=== PATIENT | female | born 1985 | race African-American/Black ===

== ENCOUNTER 2017-05-10 05:12 | Inpatient (IN) | payer OTHER ==
[2017-05-10] VITALS (25 sets, daily range): BP systolic 115–178; BP diastolic 65–100
[~2017-05-10] VITALS: Ht 175.3 cm; Wt 100.7 kg
[~2017-05-10 05:12] MED LIST: ALBUTEROL SULF8.5 GM INH
[2017-05-10] MEDS ORDERED: Thrombin 5000 units TOPIC ONE (06:35)
[2017-05-10] MEDS ORDERED: Surgicel 4in x 8in TOPIC ONE (06:35)
[2017-05-10] MEDS ORDERED: Lidocaine 1% Plain 30 ml INJ ONE ×2 (06:36→07:00)
[2017-05-10] MEDS ORDERED: Bacitracin 50000 Units Vial ONE (06:36)
[2017-05-10] MEDS ORDERED: Vancomycin 1gm inj IVPB ONE (06:36)
[2017-05-10] MEDS ORDERED: LR 1000ml 1,000 ML IVLG SCH (06:41)
--- NOTE | 2017-05-10 06:43 | Anethesia Preoperative Eval ---
Anesthesia Pre-op PMH/ROS General Date of Evaluation: May 10, 2017 Time of Evaluation: 07:11 Anesthesiologist: Dolly ASA Score: ASA 2 Mallampati Score Class I : Soft palate, uvula, fauces, pillars visible Class II: Soft palate, uvula, fauces visible Class III: Soft palate, base of uvula visible Class IV: Only hard plate visible Mallampati Classification: Class I Surgeon: Reilly Diagnosis: Neck Pain Surgical Procedure: C5-6 ADR Anesthesia History: none Family History: no anesthesia problems Allergies: Coded Allergies: SHELLFISH DERIVED (Verified Allergy, Severe, SWELLING, 05/09/17) Medications: see eMAR Past Medical History Pulmonary: Reports: asthma Other: obesity - BMI 35 PSxH Narrative: C/S Anesthesia Pre-op Phys. Exam Physician Exam Last Vital Signs Date Time Temp Pulse Resp B/P (MAP) Pulse Ox O2 Delivery O2 Flow Rate FiO2 05/10/17 05:55 97.8 74 20 131/90 98 Room Air Constitutional: NAD Neurologic: CN 2-12 intact Cardiovascular: RRR Respiratory: CTA Gastrointestinal: S/NT/ND Airway Exam Mallampati Score: Class II MO: full ROM: limited Teeth: intact Anesthesia Pre-op A/P Labs Urine Test Test 05/10/17 05:25 Urine HCG, Qualitative Negative Risk Assessment & Plan Assessment: ASA 2 Plan: GA, BIS, GlideScope Status Change Before Surgery: No Pre-Antibiotics Dru Grams Ancef IV Given Within 1 Hr of Incision: Yes Time Given: 07:31 Rajinder Alberto MD May 10, 2017 06:43
[2017-05-10] MEDS ORDERED: Atropine Inj 1mg/10ml Syr IV PRN (06:45)
[2017-05-10] MEDS ORDERED: Norco 5mg/325mg tab ORAL PRN (06:45)
[2017-05-10] MEDS ORDERED: Metoclopramide 10mg/2ml Inj IVP PRN (06:45)
[2017-05-10] MEDS ORDERED: Ketorolac 30mg Inj IV PRN (06:45)
[2017-05-10] MEDS ORDERED: fentaNYL 100 mcg/2 mL IV PRN (06:45)
[2017-05-10] MEDS ORDERED: Ketorolac 60mg Inj IM PRN (06:45)
[2017-05-10] MEDS ORDERED: Norco 7.5mg/325mg tab ORAL PRN (06:45)
[2017-05-10] MEDS ORDERED: Midazolam 2mg/2ml Inj IVP PRN (06:45)
[2017-05-10] MEDS ORDERED: Hydromorphone 0.5mg/0.5ml inj IVP PRN (06:45)
[2017-05-10] MEDS ORDERED: Labetalol 5mg/ml 20ml vial IV PRN (06:45)
[2017-05-10] MEDS ORDERED: DiphenhydrAMINE 50mg/ml Inj IVP PRN (06:45)
[2017-05-10] MEDS ORDERED: oxyCODONE HCL/Acetaminophen 5/325mg ORAL PRN (06:45)
[2017-05-10] MEDS ORDERED: LORazepam Inj 2mg/ml 1ml IV PRN (06:45)
[2017-05-10] MEDS ORDERED: Sterile Water Irrig 1000ml IRRIG ONE (07:00)
[2017-05-10] MEDS ORDERED: Sodium Chloride 10ml vial INJ ONE (07:00)
[2017-05-10] MEDS ORDERED: LR 1000ml ONE (07:00)
[2017-05-10] MEDS ORDERED: NS Irrig 1000ml ONE (07:00)
[2017-05-10] MEDS ORDERED: Lidocaine 1% MPF 10mg/ml 5ml ONE (07:00)
[2017-05-10] MEDS ORDERED: Labetalol 5mg/ml 20ml vial IV ONE (07:00)
[2017-05-10] MEDS ORDERED: ceFAZolin sod 1 GM in NS 55 ML IVPB ONE (07:00)
[2017-05-10] MEDS ORDERED: Propofol 1,000mg/ 100ml btl IV ONE (07:00)
[2017-05-10] MEDS ORDERED: Nimbex 2mg/ml Inj 10ML IVP ONE (07:00)
[2017-05-10] MEDS ORDERED: Dexamethasone 4mg/ml vial ONE (07:00)
[2017-05-10] MEDS ORDERED: Dexamethasone 20mg/5ml IVP ONE (07:00)
[2017-05-10] MEDS ORDERED: Glycopyrrolate 0.2mg/ml 1ml Vial ONE (07:00)
[2017-05-10] MEDS ORDERED: Neostigmine 1mg/ml 10ml Inj ONE (07:00)
[2017-05-10] MEDS ORDERED: fentaNYL 100 mcg/2 mL IV ONE (07:00)
--- NOTE | 2017-05-10 07:12 | Immediate Post-Op Evaluation ---
Immediate Post-Op Evalulation Immediate Post-Op Evalulation Procedure: C5-6 ADR Date of Evaluation: May 10, 2017 Time of Evaluation: 10:22 IV Fluids: 1000 LR Blood Products: 0 Estimated Blood Loss: 25 Urinary Output: 0 Blood Pressure Systolic: 127 Blood Pressure Diastolic: 100 Pulse Rate: 90 Respiratory Rate: 16 O2 Sat by Pulse Oximetry: 100 Pain Score (1-10): 2 Nausea: No Vomiting: No Complications 0 Patient Status: awake, reacts, patent, extubated, none Hydration Status: adequate Dru Grams Ancef IV Given Within 1 Hr of Incision: Yes Time Given: 07:31 Rajinder Alberto MD May 10, 2017 07:12
--- NOTE | 2017-05-10 07:28 | Pre-Procedure Note/Attestation ---
Pre-Procedure Note/Attestation Complete Prior to Procedure Planned Procedure: not applicable Procedure Narrative: C5-6 ADR possible ACDF with plate fixation Indications for Procedure Pre-Operative Diagnosis: Traumatic Neck Pain Discogentic Attestation I attest that I discussed the nature of the procedure; its benefits; risks and complications; and alternatives (and the risks and benefits of such alternatives ), prior to the procedure, with the patient (or the patient's legal visitor services representative). I attest that, if there was a reasonable possibility of needing a blood transfusion, the patient (or the patient's legal visitor services representative) was given the [facility] standardized written summary, pursuant to the Jani Chacha Blood Safety Act ([place] Health and Safety Code # 1645, as amended). I attest that I re-evaluated the patient just prior to the surgery and that there has been no change in the patient's H&P, except as documented below: MEAGAN GOINS May 10, 2017 07:27
[2017-05-10] MEDS ORDERED: Acetaminophen (Non formulary) 100 ML IV ONE (08:00)
--- NOTE | 2017-05-10 10:27 | Brief Operative Note ---
Immediate Post Operative Note Operative Note Pre-op Diagnosis: Traumatic Neck Pain Discogentic Procedure: ADR C5-6 Post-op Diagnosis: same as pre-op Findings: consistent w/pre-op dx studies Surgeon: Reilly BAEZ Sampler And Test Preparer: Tay STUART Anesthesiologist: Dolly BAEZ Anesthesia: general Specimen: none Complications: none Condition: stable Fluids: anesthesia Estimated Blood Loss: minimal Drains: none Implant(s) used?: Yes MEAGAN GOINS May 10, 2017 10:27
[2017-05-10] MEDS ORDERED: Albuterol ud Inhalation ONE (11:47)
[2017-05-10] MEDS ORDERED: Albuterol ud Inhalation HHN SCH (15:00)
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
[2017-05-10] MEDS ORDERED: D5 1/2NS 1,000 ML IV SCH (16:00)
[2017-05-10] MEDS ORDERED: Morphine Sulfate 4mg/ml Inj IM PRN (16:00)
[2017-05-10] MEDS ORDERED: Norco 10mg/325mg tab ORAL PRN (16:00)
[2017-05-10] MEDS ORDERED: ceFAZolin sod 1 GM in D5W 55 ML IV SCH (16:30)
[2017-05-10] MEDS ORDERED: Chloraseptic Spray 20mL Bottle ORAL PRN (16:30)
--- NOTE | 2017-05-10 17:53 | Diagnostic Imaging Report ---
FLUOROSCOPIC IMAGE FROM SURGICAL PROCEDURE Indication: Upper extremity pain Operating surgeon: MEAGAN GOINS Total fluoroscopy time: 12.1 seconds Total fluoroscopy dose: 0.69mGy Technique: 2 fluoroscopic images from surgical procedure submitted for archival the PACS. Comparison: None Findings: 2 lateral fluoroscopic views of the cervical spine obtained during surgical procedure were submitted. Surgical additional are noted at the level of C5-C6 on first image. Second image demonstrates an interbody spacer noted at C5-C6. Impression: Fluoroscopic images from surgical procedure. Please see operative report.
--- NOTE | 2017-05-10 20:46 | Operative Note - Dictated ---
DATE OF OPERATION: 05/10/2017 SURGEON: Elvin Grover, PhD, M.D., primary surgeon. HADOOP JAVA DEVELOPER: NARCISO Ellison. ANESTHESIA: General with intubation. ANESTHESIOLOGIST: Rajinder Alberto M.D. ESTIMATED BLOOD LOSS: Minimal. COMPLICATIONS: None. POSTOPERATIVE CONDITION: Good/stable. IMPLANT: Artificial disc replacement, C5-C6. ADMITTING/PREOPERATIVE DIAGNOSIS: Posttraumatic discogenic neck pain. POSTOPERATIVE DIAGNOSIS: Posttraumatic discogenic neck pain. OPERATIVE PROCEDURE: 1. Anterior cervical artificial disc replacement, C5-C6. 2. High-powered magnification dissection. 3. SSEP monitoring. 4. Intraoperative x-rays interpreted by surgeon. PROCEDURE IN DETAIL: The patient was brought to the operating room and in the supine position, general anesthesia with intubation was induced. IV antibiotics, IV Decadron were administered 30 minutes prior to incision time. After appropriate positioning a cross-table imaging was obtained with markers in place demonstrating the correct level for incision placement. The appropriate skin fold was sterilely marked. Markers were removed from the contralateral aspect of the neck. Anterior cervical spine was sterilely prepped and draped free in usual sterile fashion. A transverse incision in the skin fold was sharply placed through dermis and epidermis over the anterior aspect of the left sternocleidomastoid muscle. Sharp dissection through dermis and epidermis, electrocautery dissection through subcutaneous tissue. Platysmas muscle identified, isolated, and transected in line with the incision. Blunt dissection carried medial to the sternocleidomastoid sequentially through the deep cervical and pretracheal fascia to the midline between the right and left longus colli muscles. Spinal needle bent at 90 degrees so as to avoid penetration greater than 3 mm into the disc space was placed into the disc and a cross-table image was obtained under sterile conditions demonstrating the correct level as C5-C6. The level was marked. Needle removed. Subperiosteal dissection of the longus coli muscles over the involved interval followed with retractor placement. Needle replaced into the disc space and cross-table image was obtained under sterile conditions, confirming the level as C5-C6. Needle removed. Annulotomy performed. Diskectomy to the posterior longitudinal ligament. Denuding of the cephalad, caudad endplates to bleeding bone with maintenance of the integrity of the subchondral bone. Posterior longitudinal ligament resected. The patient was stable at all times on SSEP monitoring. No dural tears or leaks at anytime noted. Appropriate technique for the placement of the artificial disc with measuring, with trials, cross-table imaging for confirmation, followed with drilling, real cuts, with all instrumentation having stopped so as to avoid any penetration to affect the spinal cord or dura. Appropriate tamping into position of the artificial disc. Cross-table imaging demonstrating correct alignment and positioning. Hard copy of x-ray obtained. Wound irrigated with antibiotic-containing saline. Exploration revealed no obvious excoriation or laceration of vital structures. Coagulant applied followed with vancomycin powder 2.5 mg. Sequential reapproximation of platysmas muscle, subcutaneous tissue, dermis, and epidermis. Surgical strips applied. Sterile bandage applied and maintained in place with tape. The patient was awakened, extubated in the operating room, and transported to postop recovery in good stable condition. Of note is a 10-pound traction on the neck was removed. Elvin Grover M.D. DR: DELBERT JOB#: [id number] CC:
[2017-05-11 08:56] VITALS: BP 134/78
--- NOTE | 2017-05-11 08:56 | 48 Hour Post Anesthesia Eval ---
Post Anesthesia Evaluation Procedure: C5-6 ADR Date of Evaluation: May 11, 2017 Time of Evaluation: 08:55 Blood Pressure Systolic: 134 0: 78 Pulse Rate: 70 Respiratory Rate: 14 Temperature (Fahrenheit): 98 O2 Sat by Pulse Oximetry: 99 Airway: patent Nausea: No Vomiting: No Pain Intensity: 0 Hydration Status: adequate Mental Status/LOC: patient returned to baseline Post-Anesthesia Complications: none Follow-up care needed: patient intructions given Magno Costa M.D. May 11, 2017 08:56
--- NOTE | 2017-05-11 10:23 | Discharge Summary ---
Discharge Summary Hospital Course Date of Admission May 10, 2017 at 15:42 Date of Discharge May 10, 2017 at 20:15 Admitting Diagnosis HPI Israel Palmer is a 31 year old female who was admitted on May 10, 2017 at 15: 42 for Cervical Discogenic Pain Hospital Course [id number] Discharge Discharge Disposition Patient was discharged to Home (01) Discharge Diagnoses: Teresa Hernandez NP May 11, 2017 10:23
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
== END 2017-05-10 20:15 | disposition home or self-care (01) | DRG 518 ==
LOC: SUR 05:12 → 3E 15:42
PROC: 0RR30JZ Replacement of Cervical Vertebral Disc with Synthetic Substitute, Open Approach (ICD-10-PCS; principal; 2017-05-10 07:00)
DX: M50.122 Cervical disc disorder at C5-C6 level with radiculopathy (principal); E66.9 Obesity, unspecified; J45.909 Unspecified asthma, uncomplicated; V89.2XXS Person injured in unspecified motor-vehicle accident, traffic, sequela
CPT/HCPCS: 36415; 72040; 76001; 81025; 86850; 86900; 86901; 87081; 94003; 94150; J2405; J2710